=== PATIENT | male | born 1960 | race Caucasian/White ===

== ENCOUNTER 2017-03-27 18:11 | Inpatient (IN) | payer OTHER ==
[~2017-03-27] VITALS: Ht 180.3 cm; Wt 153.0 kg
[2017-03-27 20:15] LABS: HEMATOCRIT 37.9 % (38.0-50.0); MCH 27.3 PG (29.0-34.0); MCHC 31.9 G/DL (30.0-36.0); MCV 85.4 FL (86-99); MEAN PLAT.VOLUME 10.7 uM^3 (9.0-12.4); PLATELET COUNT 230 K/uL (156-360); RBC DIS.WIDTH-CV 17.1 % (11.8-14.6); RBC DIS.WIDTH-SD 53.1 % (39-53); RED BLOOD COUNT 4.44 M/uL (4.00-5.50); WHITE BLOOD COUNT 8.8 K/uL (4.1-10.2)
[2017-03-27 20:26] LABS: CHLORIDE 99 mEq/L (99-109); POTASSIUM 4.1 mEq/L (3.7-5.4); SODIUM 138 mEq/L (136-147)
[2017-03-27 20:28] LABS: GLUCOSE 250 mg/dL (70-99)
[2017-03-27 20:29] LABS: ANION GAP 12 MEQ/L (2-14)
[2017-03-27 20:32] LABS: GFR ESTIMATE (CALCULATED) 27 mL/min/; UREA NITROGEN (BUN) 31 mg/dL (9-23)
[2017-03-27 20:34] LABS: TROP-I INTERPRETATION NEGATIVE; TROPONIN-I < 0.01 ng/mL (0.0-0.30)
[2017-03-27 23:04] LABS: INTER. NORMALIZED RATIO 1.3; PROTHROMBIN TIME 13.2 (9.2-11.2); PTT 29.9 (25-32)
[2017-03-27 23:27] LABS: POINT-OF-CARE METER ID UU13113702
[2017-03-28] MEDS ORDERED: NOVOLIN,HU100 UNITS/ SC (04:11)
[2017-03-28] MEDS ORDERED: AMIODARONE HCL200 MG PO (04:12)
[2017-03-28] MEDS ORDERED: ALLOPURINOL100 MG PO (04:12)
[2017-03-28] MEDS ORDERED: ASPIRIN325 MG PO (04:13)
[2017-03-28] MEDS ORDERED: VITAMIN D31000 UNI2 PO (04:14)
[2017-03-28] MEDS ORDERED: CLOPIDOGREL75 MG PO (04:15)
[2017-03-28] MEDS ORDERED: FERROUS SULFAT324 M1 PO (04:16)
[2017-03-28] MEDS ORDERED: ISOSORBIDE DINI20 MG PO (04:17)
[2017-03-28] MEDS ORDERED: FISH OIL 1,0001 EAC7 PO (04:17)
[2017-03-28] MEDS ORDERED: WARFARIN SODIUM5 MG PO (04:19)
[2017-03-28] MEDS ORDERED: GABAPENTIN600 MG PO (04:19)
[2017-03-28] MEDS ORDERED: CARVEDILOL12.5 MG PO (04:20)
[2017-03-28] MEDS ORDERED: BUMETANIDE2 MG PO (04:20)
[2017-03-28] MEDS ORDERED: PRAVASTATIN SOD80 MG PO (04:21)
[2017-03-28] MEDS ORDERED: SPIRONOLACTONE50 MG PO (04:21)
[2017-03-28 04:54] LABS: TROP-I INTERPRETATION NEGATIVE; TROPONIN-I 0.01 ng/mL (0.0-0.30)
[2017-03-28 05:46] VITALS: BP 175/84
[2017-03-28 07:08] LABS: Estimated Average Glucose 226 mg/dL (70-123); HEMOGLOBIN A1c (GLYCOHEMOGLOB) 9.5 % HGB (Below 5.7)
[2017-03-28 07:11] LABS: ADD MIUA? NO; BILIRUBIN NEGATIVE; BLOOD NEGATIVE; COLOR YELLOW ((YELLOW)); GLUCOSE (STRIP) NEGATIVE; KETONES NEGATIVE; LEUKOCYTES NEGATIVE; NITRITE NEGATIVE; PROTEIN (STRIP) NEGATIVE; SPECIFIC GRAVITY 1.012 (1.000-1.030); UROBILINOGEN 0.2 MG/DL (0.2-1.0)
[2017-03-28 07:58] VITALS: BP 126/72
[2017-03-28 10:38] LABS: TROP-I INTERPRETATION NEGATIVE; TROPONIN-I < 0.01 ng/mL (0.0-0.30)
[2017-03-28 11:33] VITALS: BP 154/81
[2017-03-28] MEDS ORDERED: COUMADIN2.5 MG PO (15:22)
[2017-03-28] MEDS ORDERED: LIPITOR80 MG PO (15:24)
[2017-03-28] MEDS ORDERED: ZYLOPRIM100 MG PO (15:31)
[2017-03-28] MEDS ORDERED: SILVADENE20 GM TP (15:31)
[2017-03-28] MEDS ORDERED: CYANOCOBALAM1000 MCG PO (15:34)
[2017-03-28] MEDS ORDERED: TYLENOL REGULA325 MG PO (15:36)
[2017-03-28 15:52] VITALS: BP 138/83
[2017-03-28 17:37] LABS: POINT-OF-CARE METER ID UU13113717
[2017-03-28 19:36] VITALS: BP 160/59
[2017-03-28 23:32] VITALS: BP 125/69
[2017-03-29 03:31] VITALS: BP 117/59
[2017-03-29 06:56] LABS: HEMATOCRIT 36.6 % (38.0-50.0); MCH 27.8 PG (29.0-34.0); MCHC 32.2 G/DL (30.0-36.0); MCV 86.1 FL (86-99); MEAN PLAT.VOLUME 10.2 uM^3 (9.0-12.4); PLATELET COUNT 238 K/uL (156-360); RBC DIS.WIDTH-CV 17.2 % (11.8-14.6); RBC DIS.WIDTH-SD 54.4 % (39-53); RED BLOOD COUNT 4.25 M/uL (4.00-5.50); WHITE BLOOD COUNT 8.1 K/uL (4.1-10.2)
[2017-03-29 07:08] LABS: INTER. NORMALIZED RATIO 1.3; PROTHROMBIN TIME 12.9 (9.2-11.2)
[2017-03-29 07:22] LABS: ANION GAP 11 MEQ/L (2-14); CHLORIDE 99 MEQ/L (99-109); GFR ESTIMATE (CALCULATED) 31 mL/min/; POTASSIUM 4.1 MEQ/L (3.7-5.4); SAMPLE HEMOLYSIS CHECK 0; SAMPLE ICTERIC CHECK 0; SAMPLE LIPEMIA CHECK 0; SODIUM 140 MEQ/L (136-147); UREA NITROGEN (BUN) 32 mg/dL (9-23)
[2017-03-29 07:30] LABS: GLUCOSE 73 mg/dL (70-99)
[2017-03-29 08:06] VITALS: BP 156/90
[2017-03-29 11:27] VITALS: BP 132/70
[2017-03-29] MEDS ORDERED: KEFLEX500 MG PO (12:40)
== END 2017-03-29 15:15 | disposition left against medical advice (07) | DRG 603 ==
LOC: EME 18:11 → 5SOUTH 03-28 03:46 → EDOF 03-28 03:46 → 5SOUTH 03-28 05:20
PROVIDERS: Emergency Medicine; Hospitalist; Internal Medicine
DX: L03.116 Cellulitis of left lower limb (principal); E11.621 Type 2 diabetes mellitus with foot ulcer; L97.529 Non-pressure chronic ulcer of other part of left foot with unspecified severity; R07.9 Chest pain, unspecified; E11.65 Type 2 diabetes mellitus with hyperglycemia; I13.0 Hypertensive heart and chronic kidney disease with heart failure and stage 1 through stage 4 chronic kidney disease, or unspecified chronic kidney disease; E11.22 Type 2 diabetes mellitus with diabetic chronic kidney disease; I25.10 Atherosclerotic heart disease of native coronary artery without angina pectoris; E66.9 Obesity, unspecified; I50.9 Heart failure, unspecified; I48.91 Unspecified atrial fibrillation; N18.9 Chronic kidney disease, unspecified; I73.9 Peripheral vascular disease, unspecified; I87.2 Venous insufficiency (chronic) (peripheral); I89.0 Lymphedema, not elsewhere classified; J43.9 Emphysema, unspecified; I25.5 Ischemic cardiomyopathy; I25.2 Old myocardial infarction; Z95.810 Presence of automatic (implantable) cardiac defibrillator; Z86.73 Personal history of transient ischemic attack (TIA), and cerebral infarction without residual deficits; Z87.891 Personal history of nicotine dependence; Z95.1 Presence of aortocoronary bypass graft; Z83.3 Family history of diabetes mellitus
CPT/HCPCS: 70450; 71020; 72125; 80048; 81003; 82948; 83036; 83605; 83880; 84484; 85027; 85610; 85730; 87040; 93005; 93971; 99281; 99285; J0690; J1650; J1815; J1940; J2543; J7050